=== PATIENT | female | born 1965 | race African-American/Black ===

== ENCOUNTER 2019-11-17 06:07 | Day surgery (SDC) | payer BC ==
--- NOTE | 2019-11-16 12:02 | HP ---
- Patient Scheduled date of Surgery: 11/17/19 Scheduled Surgical Procedure: Phacoemulsification and cataract extraction with PCIOL Affected Eye: Left Chief Complaint (Indication for surgery): Decreased vision affecting ADLs, Decreased vision impairing reading - Ocular History Other Eye History: Other (pterygium) Eye Medications: vigamox Previous Eye Surgery: s/p ce/pciol OD - Medical History Illnesses: Other (none) Current Medications: Ambulatory Orders Red Yeast Rice 1,200 mg PO BID 09/19/15 Allergies/Adverse Reactions: Allergies Allergy/AdvReac Type Severity Reaction Status Date / Time No Known Drug Allergies Allergy Verified 09/20/15 06:57 Ocular Examination - Best Corrected Visual Acuity Distance: Right eye: 20/20 Distance: Left eye: 20/40 (glare) - External/Slit Lamp Examination Abnormalities: pingueculum - Intraocular Pressure Intraocular Pressure - Right eye: 12 Intraocular Pressure-Left eye: 12 - Lens Lens: 2+ NS 3+ cortical - Vitreous/Retina Vitreous/Retina: C:D 0.35 m/v/p wnl - Special Examination M - Right eye: plano M - Left eye: +1.25-0.75 x 100 K - Right eye: 43.75/44.25 x 110 K - Left eye: 44/45 x 090 AL - Right eye: 23.74 AL - Left eye: 23.78 IOL bag: +19.5 IOL sulcus: +18.5 MN6oAC IOL AC: +16.0 MTA 4UO - Impression Impression: Cataract Left Eye (cortical) - Plan Plan: Phacoemulsification and cataract extraction - IOL Left eye Post-hospital care will be provided in office on: 11/18/19
[2019-11-16 14:15] VITALS: BMI 28.3
[~2019-11-17 06:07] MED LIST: TOBRAMYCIN/DEXAMETHASONE OPHTH. OINTMENT 1 TUBE TP ONE
[2019-11-17] MEDS ORDERED: PHENYLEPHRINE 2.5% OPHTH SOLN 15 ML BOTTLE ONE (06:30)
[2019-11-17] MEDS ORDERED: TROPICAMIDE 1% OPHTH SOLN 15 ML BOTTLE ONE (06:30)
[2019-11-17] MEDS ORDERED: CIPROFLOXACIN HCL 0.3% OPHTH 2.5ML BOTTLE ONE (06:30)
[2019-11-17] MEDS ORDERED: KETOROLAC TROMETHAMINE 0.5% EYE DROP 1 DROP DROPS ONE (06:32)
[2019-11-17] MEDS ORDERED: TROPICAMIDE 1% OPHTH SOLN 15 ML BOTTLE OS ONE ×3 (06:45→07:05)
[2019-11-17] MEDS ORDERED: CIPROFLOXACIN HCL 0.3% OPHTH 2.5ML BOTTLE OS ONE ×3 (06:45→07:05)
[2019-11-17] MEDS ORDERED: PHENYLEPHRINE 2.5% OPHTH SOLN 15 ML BOTTLE OP SCH (06:45)
[2019-11-17] MEDS ORDERED: KETOROLAC TROMETHAMINE 0.5% EYE DROP 1 DROP DROPS OS ONE ×3 (06:45→07:05)
[2019-11-17] MEDS ORDERED: KETOROLAC TROMETHAMINE 0.5% EYE DROP 1 DROP DROPS OP SCH (06:45)
[2019-11-17] MEDS ORDERED: PHENYLEPHRINE 2.5% OPHTH SOLN 15 ML BOTTLE OS ONE ×3 (06:45→07:05)
[2019-11-17] MEDS ORDERED: CIPROFLOXACIN HCL 0.3% OPHTH 2.5ML BOTTLE OP SCH (06:45)
[2019-11-17] MEDS ORDERED: TROPICAMIDE 1% OPHTH SOLN 15 ML BOTTLE OP SCH (06:45)
[2019-11-17] MEDS ORDERED: ACETAMINOPHEN 325 MG TABLET (FP) PO PRN (06:45)
[2019-11-17] MEDS ORDERED: CHONDROITIN SU A/HYALUR SOD 1 KIT ONE (07:09)
[2019-11-17] MEDS ORDERED: EPINEPHrine/PF 1 MG/1 ML (1:1,000) AMPULE ONE (07:14)
[2019-11-17] MEDS ORDERED: TETRACAINE 0.5% OPHTH SOLN 2 ML BOTTLE ONE (07:14)
[2019-11-17] MEDS ORDERED: POVIDONE-IODINE 5% OPHTHALMIC PREP 30 ML SOLUTION ONE (07:14)
[2019-11-17] MEDS ORDERED: TOBRAMYCIN/DEXAMETHASONE OPHTH. OINTMENT 1 TUBE ONE (07:14)
[2019-11-17] MEDS ORDERED: LIDOCAINE HCL 1%, 10 MG/ML (20ML VIAL) ONE (07:18)
--- NOTE | 2019-11-17 07:32 | HP ---
History & Physical Update - History History: No Change - Physical Physical: No Change - Assessment Assessment: No Change - Plan Plan: No Change (H and P reviewed from Dr. Rivera on 11/02/19 no changes)
[2019-11-17] MEDS ORDERED: MIDAZOLAM HCL 2 MG/2 ML SINGLE DOSE VIAL ONE (07:35)
[2019-11-17] MEDS ORDERED: TETRACAINE 0.5% OPHTH SOLN 2 ML BOTTLE TP ONE (07:49)
[2019-11-17] MEDS ORDERED: POVIDONE-IODINE 5% OPHTHALMIC PREP 30 ML SOLUTION OS ONE (07:50)
[2019-11-17] MEDS ORDERED: TRYPAN BLUE 0.5 ML DISP.SYRIN ONE (07:57)
[2019-11-17] MEDS ORDERED: TRYPAN BLUE 0.5 ML DISP.SYRIN IO ONE (08:01)
[2019-11-17] MEDS ORDERED: CHONDROITIN SU A/HYALUR SOD 1 KIT IO ONE (08:01)
[2019-11-17] MEDS ORDERED: LIDOCAINE HCL 1% PRESERVATIVE FREE - 30ML VIAL IO ONE (08:01)
[2019-11-17] MEDS ORDERED: BSS (NA/CA/MG/K) BALANCED SALT SOLUTION OPHTH SOLN 15 ML BOTTLE OS ONE (08:01)
[2019-11-17] MEDS ORDERED: EPINEPHrine/PF 1 MG/1 ML (1:1,000) AMPULE SQ ONE (08:05)
[2019-11-17] MEDS ORDERED: TOBRAMYCIN/DEXAMETHASONE OPHTH. OINTMENT 1 TUBE TP ONE (08:26)
--- NOTE | 2019-11-17 08:35 | OP ---
Ophthalmology Operative Note Pre-Operative Diagnosis: Cataract (cortical) Operation: Phacoemulsification and cataract extraction with PCIOL (using trypan blue) Findings: cortical cataract (milky) Post-Operative Diagnosis: Same as Pre-op Sales Support Administrator: Chanda Anesthesiologist: Lindsey Benitez Anesthesia: Topical Specimens Removed: none Estimated blood loss: < 1 cc Drains & Tubes with Location: none Operative Report Dictated: Yes
--- NOTE | 2019-11-17 10:13 | OP ---
DATE OF OPERATION: 11/17/2019 PREOPERATIVE DIAGNOSIS: Cortical cataract, left eye. POSTOPERATIVE DIAGNOSIS: Cortical cataract, left eye. PROCEDURE: Phacoemulsification and cataract extraction with insertion of posterior chamber intraocular lens, left eye using trypan blue. SURGEON: Patsy Chacon MD SOCIAL AND POLITICAL STUDIES PROFESSOR: None. ANESTHESIA: Topical. ANESTHESIOLOGIST: ERIN Ansari OPERATIVE PROCEDURE: The patient received tetracaine eye drops and then was gently sedated and prepped and draped in the usual sterile fashion so as to expose only the left eye. Ophthalmic Betadine was instilled into the inferior fornix. The lashes were taped out of the surgical field. An eyelid speculum was placed into the left eye. A paracentesis was made in inferotemporal clear cornea at the limbus. Next, 0.5 mL of nonpreserved lidocaine 1% was injected into the eye. Then, an air bubble was injected into the anterior chamber, and trypan blue was dripped on the anterior capsular edge. Viscoelastic material was instilled in the anterior chamber via the paracentesis. A 2.4-mm keratome blade was then used to create the main incision in temporal clear cornea at the limbus. A continuous curvilinear capsulorrhexis was performed using a cystotome and Utrata forceps. Hydrodissection of the lens cortex was performed using BSS on a cannula until the nucleus was noted to be freely rotating. The phacoemulsification tip was then inserted via the main wound and used to scope 2 perpendicular grooves into the lens nucleus. The nucleus was cracked into 4 quadrants. Each quadrant was lifted out of the capsule into the iris plane and individually phacoemulsified. The remaining cortical material was then aspirated using the irrigation/aspiration port. The capsular bag was inflated using ProVisc and a preloaded AcrySof lens model [id number] power +19.5 diopters was injected into the capsular bag. It was centered using a Sinskey hook. The residual viscoelastic material was removed from the anterior chamber using irrigation and aspiration. The wound edges were hydrated using BSS. The wound was tested for leakage and was found to be watertight. Tobradex ointment was placed in the eye, and the speculum was removed from the eye, and the eyelid was closed. A sterile dressing and shield were placed over the eye. The patient was transferred to the recovery room in stable condition, told to follow up in 1 day. Ayden [id number]
[2019-11-17 13:35] VITALS: TEMP 98
[2019-11-17 13:39] VITALS: BP 118/80; PULSE 70
== END 2019-11-17 10:15 | disposition home or self-care (01) ==
LOC: JASU-SURG 06:07
PROVIDERS: ATTEND Ophthalmology
PROC: 08RK3JZ Replacement of Left Lens with Synthetic Substitute, Percutaneous Approach (ICD-10-PCS; principal; 2019-11-17 07:30)
DX: H26.9 Unspecified cataract (principal)
CPT/HCPCS: 84703

== ENCOUNTER 2024-07-09 08:58 | Emergency (ER) | payer BC, OTHER ==
[2024-07-09 09:12] VITALS: TEMP 98.9; BMI 28.3
[2024-07-09] MEDS ORDERED: ACETAMINOPHEN 500 MG TABLET (FP) ONE (09:32)
[2024-07-09] MEDS: ACETAMINOPHEN 500 MG TABLET (FP) PO ONE (09:44)
[2024-07-09 10:33] VITALS: BP 147/71; PULSE 52; RESP 20
== END 2024-07-09 10:53 | disposition home or self-care (01) ==
LOC: JERFT 08:58
DX: M79.10 Myalgia, unspecified site (principal); V49.40XA Driver injured in collision with unspecified motor vehicles in traffic accident, initial encounter; Y92.410 Unspecified street and highway as the place of occurrence of the external cause
CPT/HCPCS: 99283-25